=== PATIENT | female | born 1955 | race Caucasian/White ===

== ENCOUNTER 2024-12-11 09:17 | Emergency (ER) | payer OTHER ==
[~2024-12-11] VITALS: Wt 71.2 kg
[2024-12-11] MEDS ORDERED: IOHEXOL 350 MG/ML 100 ML VIAL IV ONE ×2 (09:30→10:02)
[2024-12-11] MEDS ORDERED: SODIUM CHLORIDE 0.9% 1,000 ML IV ONE ×2 (09:30→11:45)
[2024-12-11] MEDS ORDERED: SODIUM CHLORIDE 0.9% 100 ML BAG IV ONE (09:30)
[2024-12-11] MEDS ORDERED: SODIUM CHLORIDE 0.9% 100 ML IV ONE (10:02)
[2024-12-11 10:09] LABS: BASO # 0.1 10*3/uL (0.0-0.1); BASO % 0.7 % (0.0-1.0); EOS # 0.2 10*3/uL (0.0-0.4); EOS % 1.8 % (1.0-4.0); MEAN CELL VOLUME 91.1 fl (81.0-99.0); MEAN CORPUSCULAR HGB 29.4 pg (27.0-31.0); MEAN PLATELET VOLUME 10.4 fl (9.6-12.3); MONO # 0.7 10*3/uL (0.1-1.0); MONO % 6.0 % (3.0-9.0); NEUT # 8.7 10*3/uL (2.3-7.9); NEUT % 76.3 % (47.0-73.0); NUCLEATED RED BLOOD CELL 0.0 % (0.0-0.0); NUCLEATED RED BLOOD CELL 0.0 10*3/uL (0.0-0.0); PLATELET COUNT AUTOMATED 238 10*3/uL (130-400); RED CELL DISTRI WIDTH 13.8 % (0-14.5)
[2024-12-11 10:25] LABS: BUN 16 mg/dl (9-23)
[2024-12-11 10:32] LABS: ACT PARTIAL THROMBO TIME 29.3 SECONDS (20.0-32.1)
== END 2024-12-11 15:59 | disposition short-term general hospital (02) ==
LOC: ED 09:17
PROVIDERS: Emergency Medicine
DX: I63.9 Cerebral infarction, unspecified (principal); V49.9XXA Car occupant (driver) (passenger) injured in unspecified traffic accident, initial encounter; Y93.89 Activity, other specified; Y92.410 Unspecified street and highway as the place of occurrence of the external cause; Y99.8 Other external cause status